=== PATIENT | male | born 1960 | race Caucasian/White ===

== ENCOUNTER 2020-08-29 09:30 | Outpatient (REF) | payer OTHER, SELFPAY ==
[2020-08-29 10:36] LABS: MANUAL DIFF FLAG NO
[2020-08-29 10:40] LABS: Basophils Percent Auto 0.5 % (0-2); Eosinophils Absolute Auto 0.4 X10*3/uL (0.0-0.4); Eosinophils Percent Auto 6.4 % (0-4); Lymphocytes Percent Auto 18.5 % (20-40); Mean Corpuscular HGB Conc 32.1 g/dl (31.0-36.0); Mean Corpuscular Hemoglobin 31.3 pg (27.0-33.0); Mean Corpuscular Volume 97.2 fL (80-98); Mean Platelet Volume 10.3 fL (9.4-12.4); Monocytes Absolute Auto 0.7 X10*3/uL (0.1-1.2); Monocytes Percent Auto 12.3 % (2-11); Neutrophils Absolute Auto 3.5 X10*3/uL (2.0-8.3); Neutrophils Percent Auto 62.3 % (45-73); Platelet Count 248 X10*3/uL (160-400); Red Blood Count 2.88 X10*6/uL (4.60-5.80); Red Cell Distribution Width 14.8 % (11.0-16.0); White Blood Count 5.6 X10*3/uL (4.8-10.8)
[2020-08-29 11:26] LABS: Alanine Aminotransferase 10 U/L (0-40); Albumin Level 2.7 g/dL (3.5-5.0); Alkaline Phosphatase 147 U/L (39-117); Anion Gap 13 (12-20); Aspartate Amino Transferase 21 U/L (5-37); Bilirubin Direct 0.5 mg/dL (0.0-0.5); Bilirubin Total 0.9 mg/dL (0.0-1.0); Blood Urea Nitrogen 12 mg/dL (9-16); Calcium 9.9 mg/dL (8.4-10.2); Carbon Dioxide 21 mmol/L (22-29); Chloride 106 mmol/L (96-108); Estimated Glomerular Filt Rate > 60; Glucose Random 85 mg/dL (60-115); Sodium 136 mmol/L (135-145); Total Protein 7.3 g/dL (6.5-8.0)
== END 2020-08-29 09:31 | disposition home or self-care (01) ==
LOC: HO.LNP 09:30
PROVIDERS: PCP Family Medicine; Visit Provider Internal Medicine
DX: M46.26 Osteomyelitis of vertebra, lumbar region (principal)
CPT/HCPCS: 80053; 80076; 82248; 82550; 85025; 86140

== ENCOUNTER 2020-09-05 14:43 | Outpatient (REF) | payer OTHER, SELFPAY ==
[2020-09-05 14:51] LABS: MANUAL DIFF FLAG NO
[2020-09-05 14:58] LABS: Basophils Absolute Auto 0.1 X10*3/uL (0.0-0.2); Basophils Percent Auto 0.7 % (0-2); Eosinophils Absolute Auto 0.1 X10*3/uL (0.0-0.4); Eosinophils Percent Auto 1.2 % (0-4); Hematocrit 27.8 % (42-52); Hemoglobin 8.9 g/dl (14.0-18.0); Imm Gran Abs Auto 0.02 X10*3/uL (0.00-0.03); Imm Gran Pct Auto 0.3 % (0.0-0.4); Lymphocytes Absolute Auto 1.1 X10*3/uL (1.2-4.9); Lymphocytes Percent Auto 15.2 % (20-40); Mean Corpuscular Hemoglobin 30.9 pg (27.0-33.0); Mean Corpuscular Volume 96.5 fL (80-98); Monocytes Absolute Auto 0.6 X10*3/uL (0.1-1.2); Monocytes Percent Auto 8.3 % (2-11); Neutrophils Absolute Auto 5.6 X10*3/uL (2.0-8.3); Neutrophils Percent Auto 74.3 % (45-73); Platelet Count 277 X10*3/uL (160-400); Red Blood Count 2.88 X10*6/uL (4.60-5.80); Red Cell Distribution Width 14.6 % (11.0-16.0); White Blood Count 7.5 X10*3/uL (4.8-10.8)
[2020-09-05 15:31] LABS: Alanine Aminotransferase 12 U/L (0-40); Albumin Level 2.6 g/dL (3.5-5.0); Alkaline Phosphatase 135 U/L (39-117); Anion Gap 12 (12-20); Aspartate Amino Transferase 21 U/L (5-37); Bilirubin Direct 0.4 mg/dL (0.0-0.5); Bilirubin Total 0.8 mg/dL (0.0-1.0); Blood Urea Nitrogen 11 mg/dL (9-16); C Reactive Protein 2.19 mg/dL (< or = 0.50); Calcium 10.6 mg/dL (8.4-10.2); Carbon Dioxide 22 mmol/L (22-29); Chloride 109 mmol/L (96-108); Estimated Glomerular Filt Rate > 60; Glucose Random 113 mg/dL (60-115); Potassium 3.9 mmol/L (3.3-5.1); Sodium 139 mmol/L (135-145); Total Protein 6.7 g/dL (6.5-8.0)
[2020-09-05 15:47] LABS: Erythrocyte Sedimentation Rate 102 MM/HR (0-15)
== END 2020-09-05 14:44 | disposition home or self-care (01) ==
LOC: HO.LNP 14:43
PROVIDERS: Visit Provider Internal Medicine
DX: M46.26 Osteomyelitis of vertebra, lumbar region (principal)
CPT/HCPCS: 80053; 80076; 82248; 82550; 85025; 85652; 86140

== ENCOUNTER 2020-09-12 17:15 | Outpatient (REF) | payer OTHER, SELFPAY ==
[2020-09-12 17:18] LABS: MANUAL DIFF FLAG NO
[2020-09-12 17:26] LABS: Basophils Percent Auto 0.5 % (0-2); Eosinophils Absolute Auto 0.1 X10*3/uL (0.0-0.4); Eosinophils Percent Auto 2.1 % (0-4); Hematocrit 26.9 % (42-52); Hemoglobin 8.5 g/dl (14.0-18.0); Imm Gran Abs Auto 0.02 X10*3/uL (0.00-0.03); Imm Gran Pct Auto 0.4 % (0.0-0.4); Lymphocytes Absolute Auto 1.2 X10*3/uL (1.2-4.9); Lymphocytes Percent Auto 20.4 % (20-40); Mean Corpuscular HGB Conc 31.6 g/dl (31.0-36.0); Mean Corpuscular Hemoglobin 30.4 pg (27.0-33.0); Mean Corpuscular Volume 96.1 fL (80-98); Mean Platelet Volume 10.2 fL (9.4-12.4); Monocytes Absolute Auto 0.5 X10*3/uL (0.1-1.2); Monocytes Percent Auto 8.1 % (2-11); Neutrophils Absolute Auto 3.9 X10*3/uL (2.0-8.3); Neutrophils Percent Auto 68.5 % (45-73); Platelet Count 189 X10*3/uL (160-400); Red Cell Distribution Width 14.1 % (11.0-16.0); White Blood Count 5.7 X10*3/uL (4.8-10.8)
[2020-09-12 17:58] LABS: Alanine Aminotransferase 11 U/L (0-40); Albumin Level 2.5 g/dL (3.5-5.0); Alkaline Phosphatase 122 U/L (39-117); Anion Gap 13 (12-20); Aspartate Amino Transferase 19 U/L (5-37); Bilirubin Direct 0.3 mg/dL (0.0-0.5); Bilirubin Total 0.7 mg/dL (0.0-1.0); Blood Urea Nitrogen 11 mg/dL (9-16); C Reactive Protein 1.94 mg/dL (< or = 0.50); Carbon Dioxide 22 mmol/L (22-29); Chloride 108 mmol/L (96-108); Estimated Glomerular Filt Rate > 60; Glucose Random 100 mg/dL (60-115); Potassium 3.7 mmol/L (3.3-5.1); Sodium 139 mmol/L (135-145); Total Protein 6.4 g/dL (6.5-8.0)
[2020-09-12 18:42] LABS: Erythrocyte Sedimentation Rate 106 MM/HR (0-15)
== END 2020-09-12 17:16 | disposition home or self-care (01) ==
LOC: HO.HVNA 17:15
PROVIDERS: Visit Provider Internal Medicine
DX: M46.26 Osteomyelitis of vertebra, lumbar region (principal); D64.9 Anemia, unspecified
CPT/HCPCS: 36415; 80051; 80076; 82550; 82565; 82947; 84520; 85025; 85652; 86140

== ENCOUNTER 2020-10-10 12:09 | Outpatient (REF) | payer OTHER, SELFPAY ==
[2020-10-10 12:45] LABS: C Reactive Protein 0.85 mg/dL (< or = 0.50)
[2020-10-10 13:39] LABS: Erythrocyte Sedimentation Rate 81 MM/HR (0-15)
== END 2020-10-10 12:10 | disposition home or self-care (01) ==
LOC: HO.HVNA 12:09
PROVIDERS: Visit Provider Internal Medicine Infectious Disease
DX: M46.26 Osteomyelitis of vertebra, lumbar region (principal)
CPT/HCPCS: 36415; 82550; 85652; 86140

== ENCOUNTER 2020-10-17 11:25 | Outpatient (REF) | payer OTHER, SELFPAY ==
[2020-10-17 13:37] LABS: Erythrocyte Sedimentation Rate 71 MM/HR (0-15)
== END 2020-10-17 11:26 | disposition home or self-care (01) ==
LOC: HO.LNPL 11:25
PROVIDERS: Visit Provider Internal Medicine Infectious Disease
DX: M46.26 Osteomyelitis of vertebra, lumbar region (principal)
CPT/HCPCS: 82550; 85652

== ENCOUNTER 2020-10-24 13:17 | Outpatient (REF) | payer OTHER, SELFPAY ==
[2020-10-24 13:24] LABS: MANUAL DIFF FLAG NO
[2020-10-24 13:33] LABS: Basophils Absolute Auto 0.1 X10*3/uL (0.0-0.2); Basophils Percent Auto 1.4 % (0-2); Eosinophils Absolute Auto 0.1 X10*3/uL (0.0-0.4); Eosinophils Percent Auto 3.4 % (0-4); Hematocrit 29.4 % (42-52); Hemoglobin 8.9 g/dl (14.0-18.0); Imm Gran Abs Auto 0.01 X10*3/uL (0.00-0.03); Imm Gran Pct Auto 0.3 % (0.0-0.4); Lymphocytes Percent Auto 27.1 % (20-40); Mean Corpuscular HGB Conc 30.3 g/dl (31.0-36.0); Mean Platelet Volume 10.1 fL (9.4-12.4); Monocytes Absolute Auto 0.3 X10*3/uL (0.1-1.2); Monocytes Percent Auto 7.3 % (2-11); Neutrophils Absolute Auto 2.2 X10*3/uL (2.0-8.3); Neutrophils Percent Auto 60.5 % (45-73); Platelet Count 196 X10*3/uL (160-400); Red Blood Count 2.97 X10*6/uL (4.60-5.80); Red Cell Distribution Width 15.9 % (11.0-16.0); White Blood Count 3.6 X10*3/uL (4.8-10.8)
[2020-10-24 14:08] LABS: Alanine Aminotransferase 10 U/L (0-40); Albumin Level 2.9 g/dL (3.5-5.0); Alkaline Phosphatase 108 U/L (39-117); Anion Gap 12 (12-20); Aspartate Amino Transferase 24 U/L (5-37); Bilirubin Total 0.6 mg/dL (0.0-1.0); Blood Urea Nitrogen 12 mg/dL (9-16); C Reactive Protein 0.64 mg/dL (< or = 0.50); Carbon Dioxide 21 mmol/L (22-29); Chloride 112 mmol/L (96-108); Estimated Glomerular Filt Rate > 60; Glucose Random 108 mg/dL (60-115); Potassium 3.7 mmol/L (3.3-5.1); Sodium 141 mmol/L (135-145); Total Protein 6.3 g/dL (6.5-8.0)
[2020-10-24 14:32] LABS: Erythrocyte Sedimentation Rate 45 MM/HR (0-15)
== END 2020-10-24 13:18 | disposition home or self-care (01) ==
LOC: HO.HVNA 13:17
PROVIDERS: Visit Provider Internal Medicine Infectious Disease
DX: M46.26 Osteomyelitis of vertebra, lumbar region (principal)
CPT/HCPCS: 36415; 80053; 82550; 85025; 85652; 86140

== ENCOUNTER 2020-11-07 13:38 | Outpatient (REF) | payer OTHER, SELFPAY ==
[2020-11-07 13:41] LABS: MANUAL DIFF FLAG NO
[2020-11-07 13:45] LABS: Basophils Percent Auto 0.8 % (0-2); Eosinophils Absolute Auto 0.1 X10*3/uL (0.0-0.4); Eosinophils Percent Auto 1.8 % (0-4); Hemoglobin 9.9 g/dl (14.0-18.0); Imm Gran Abs Auto 0.01 X10*3/uL (0.00-0.03); Imm Gran Pct Auto 0.3 % (0.0-0.4); Lymphocytes Absolute Auto 0.9 X10*3/uL (1.2-4.9); Lymphocytes Percent Auto 23.1 % (20-40); Mean Corpuscular HGB Conc 31.9 g/dl (31.0-36.0); Mean Corpuscular Hemoglobin 30.7 pg (27.0-33.0); Mean Corpuscular Volume 96.3 fL (80-98); Mean Platelet Volume 10.5 fL (9.4-12.4); Monocytes Absolute Auto 0.4 X10*3/uL (0.1-1.2); Monocytes Percent Auto 8.9 % (2-11); Neutrophils Absolute Auto 2.6 X10*3/uL (2.0-8.3); Neutrophils Percent Auto 65.1 % (45-73); Platelet Count 152 X10*3/uL (160-400); Red Blood Count 3.22 X10*6/uL (4.60-5.80); Red Cell Distribution Width 15.9 % (11.0-16.0); White Blood Count 3.9 X10*3/uL (4.8-10.8)
[2020-11-07 14:23] LABS: Alanine Aminotransferase 13 U/L (0-40); Albumin Level 3.4 g/dL (3.5-5.0); Alkaline Phosphatase 109 U/L (39-117); Anion Gap 11 (12-20); Aspartate Amino Transferase 26 U/L (5-37); Bilirubin Total 0.7 mg/dL (0.0-1.0); Blood Urea Nitrogen 11 mg/dL (9-16); C Reactive Protein 0.24 mg/dL (< or = 0.50); Calcium 10.4 mg/dL (8.4-10.2); Carbon Dioxide 22 mmol/L (22-29); Chloride 112 mmol/L (96-108); Estimated Glomerular Filt Rate > 60; Glucose Random 84 mg/dL (60-115); Potassium 3.9 mmol/L (3.3-5.1); Sodium 141 mmol/L (135-145); Total Protein 6.9 g/dL (6.5-8.0)
[2020-11-07 14:37] LABS: Erythrocyte Sedimentation Rate 34 MM/HR (0-15)
== END 2020-11-07 13:39 | disposition home or self-care (01) ==
LOC: HO.HVNA 13:38
PROVIDERS: Visit Provider Internal Medicine Infectious Disease
DX: M46.26 Osteomyelitis of vertebra, lumbar region (principal)
CPT/HCPCS: 36415; 80053; 82550; 85025; 85652; 86140